=== PATIENT | male | born 1955 | race Caucasian/White ===

== ENCOUNTER 2016-05-06 12:37 | Inpatient (IN) | payer OTHER ==
[2016-05-06] MEDS ORDERED: ACETAMINOPHEN 325 MG TABLET PO PRN (13:30)
[2016-05-06] MEDS ORDERED: BISACODYL 10 MG SUP PR PRN (13:30)
[2016-05-06] MEDS ORDERED: BISACODYL 5 MG TABLET.EC PO PRN (13:30)
[2016-05-06] MEDS ORDERED: MAGNESIUM HYDROXIDE 30 ML UDCUP PO PRN (13:30)
[2016-05-06] MEDS ORDERED: BLISTEX LIPSTICK 1 EACH TP PRN (13:30)
[2016-05-06] MEDS ORDERED: MENTHOL/CETYLPYRD 1 EACH LOZENGE PO PRN (13:30)
[2016-05-06] MEDS ORDERED: SODIUM CHLORIDE 0.9% 100 ML IV PRN (13:30)
[2016-05-06] MEDS ORDERED: INSULIN ASPART (DOSE) 100 UNITS/1 ML SUB-Q PRN (13:32)
[2016-05-06] MEDS ORDERED: OXYCODONE HCL 5 MG TABLET PO PRN (13:32)
[2016-05-06 15:10] LABS: ABSOLUTE NEUTROPHIL COUNT 5.6 K/mm3 (1.8-7.7); BASO # 0.1 K/mm3 (0.0-0.2); BASO % 0.7 % (0.2-1.0); EOS # 0.5 (0.0-0.5); EOS % 5.9 % (0.9-2.9); HEMATOCRIT 46.9 % (32.0-52.0); HEMOGLOBIN 15.9 gm/l (14.0-18.0); IMM NEUT% 0.1 % (0-1); LYMPH # 1.8 (1.0-4.8); MEAN CELL VOLUME 92.1 fl (80.0-94.0); MEAN CORPUSCULAR HEMOGLOBIN 31.2 pg (27.0-31.0); MEAN CORPUSCULAR HGB CONC 33.9 g/dl (33.0-37.0); MEAN PLATELET VOLUME 9.4 fl (7.4-10.4); MONO # 0.6 (0.0-0.8); MONO % 6.5 % (4-12); NEUT % 65.8 % (43-75); PLATELET COUNT 220 K/mm3 (130-400); RED CELL DISTRIBUTION WIDTH 11.8 % (11.5-14.5)
[2016-05-06 15:30] LABS: ALB/GLOB RATIO 1.5 (>1.0); ALBUMIN 4.3 gm/dL (3.5-5.7); CALCIUM 9.8 mg/dL (8.6-10.3)
[2016-05-06 15:49] VITALS: BMI 29.1
[2016-05-06] MEDS ORDERED: PUMP TUBING ONE (16:22)
[2016-05-06] MEDS ORDERED: IV START KIT ONE (16:22)
[2016-05-06] MEDS ORDERED: INSULIN ASPART (DOSE) 100 UNITS/1 ML SUB-Q SCH ×2 (17:00)
[2016-05-06] MEDS ORDERED: INSULIN LISPRO SUB-Q SCH (17:00)
[2016-05-06] MEDS: VANCOMYCIN HCL 2 G in SODIUM CHLORIDE 0.9% 500 ML IV SCH (17:14)
[2016-05-06] MEDS: INSULIN ASPART (DOSE) 100 UNITS/1 ML SUB-Q SCH (17:22)
[2016-05-06] MEDS ORDERED: FLU VACC 2016-17 (36MO-64Y)/PF 60 MCG/0.5 ML SYRINGE IM V ONE (17:38)
--- NOTE | 2016-05-06 18:01 | HP ---
NURIA LEON [id number] DATE OF ADMISSION: May 06, 2016 CHIEF COMPLAINT: Left third digit redness, pain and swelling not responsive to antibiotics. HISTORY OF PRESENT ILLNESS: The patient is a 60-year-old male who has had a five or six day history of pain, redness and swelling involving the distal left third digit. He was seen at the [facility] on May 04, 2016, diagnosed with paronychia. He had the area drained and cultured and was prescribed Bactrim and clindamycin but despite the antibiotic therapy, he has not had improvement and has had progression of the redness involving his distal finger. I was contacted by [facility] requesting a direct admission of the patient. REVIEW OF SYSTEMS: Is negative for any signs of systemic illness. He denies any fever, chills, weakness or fatigue. He has had no upper respiratory symptoms, no cough, dyspnea, wheezing, chest pain, shortness of breath, or palpitations. No nausea, vomiting, diarrhea, constipation, or abdominal pain. No new arthralgias, no headaches, fainting, blackouts or seizures. No urinary complaints. He does have some chronic neuropathic discomfort but this has been stable. PAST MEDICAL HISTORY: Is significant for: 1. Adult onset diabetes treated with insulin. He actually states that he has insulin dependent diabetes just late onset. He was diagnosed about 21 years ago. He initially was tried on oral medications but he failed and was put on insulin with good results. He has had some microvascular disease complicating his diabetes but no other complications except for some mild neuropathy and denies retinopathy or nephropathy. 2. He has had a history of bipolar 2 disease, stable on medications. 3. Denies history of hypertension or coronary artery disease. 4. He denies any other chronic medical problems. 5. He reports a hospitalization a little over a year ago in March with cellulitis in the right foot. 6. He has had problems with infections in his feet but no lung or cardiac disease. PAST SURGICAL HISTORY: Significant for: 1. Tonsillectomy as a child. 2. 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 3. He also has had amputations of his distal phalanx of both his left and right feet which was done prior to that due to ulcerations that became infected and would not heal. 4. He denies any other surgical history. ALLERGIES: NO KNOWN DRUG ALLERGIES BUT WANTS TO PUT PENICILLIN DOWN AN ALLERGY DUE TO A FAMILY HISTORY OF ANAPHYLAXIS. CURRENT MEDICATIONS: 1. Lamictal 100 mg tablets. He takes 250 mg once daily. When I pointed out the bottle says twice daily, he states he has always taken it once a day and will review the dosage with his primary care provider in the future. 2. He also takes Seroquel 50 mg at bedtime as needed for sleep. 3. Latanoprost 0.005% eyedrops one drop in each eye at bedtime. 4. Humalog lispro insulin 10 to 15 unit before each meal and adjust the dose depending on his blood sugar and his dietary intake. He does not use a bedtime dose of insulin. FAMILY HISTORY: Negative for diabetes or heart disease. SOCIAL HISTORY: He has been single all his life. Has no children and is disabled from his diabetes. He lives alone but has a supportive family. PHYSICAL EXAMINATION: VITAL SIGNS: No vital signs have been recorded at this time. His body mass index is 29 and his weight is 111 kilograms. GENERAL: This is a well-developed, well-nourished male in no acute distress. HEENT: Exam is unremarkable. CHEST: Lungs are clear to auscultation bilaterally. CARDIOVASCULAR: Exam reveals a regular rate and rhythm without a murmur. ABDOMEN: Is soft, nontender, nondistended with positive bowel sounds. EXTREMITIES: Show no peripheral edema. Pulses are 2+ at the dorsalis pedis arteries bilaterally. He has a small callus under the right first toe with a very small amount of eschar present about 1 cm in size. No drainage, bleeding or redness. His left third distal phalanx is inflamed with some area of fluctuance involving the lateral nail bed. The redness does not extend beyond the distal interphalangeal joint. It does not appear to involve the joint. LABORATORY STUDIES: CBC shows a white count of 8.5, hemoglobin of 15.9, platelet count of 220,000. Chemistry profile shows sodium 136, potassium 4.1, carbon dioxide 24, BUN 16, creatinine 0.9. Liver function tests are normal. Glucose was 88. DIAGNOSTIC IMAGING: Patient had plain films done of the hand earlier today, mainly the finger, but there was no bony abnormality identified. ASSESSMENT: Patient has paronychia with some secondary cellulitis with adult onset diabetes on insulin and glaucoma. Because he has failed antibiotic treatment with clindamycin and Bactrim and has already had the area incised and drained with persistent inflammation, he is going to be placed under observation, treated with vancomycin overnight. I am going to ask Dr. Bartolome Clark to evaluate the patient in the morning if see if further surgical drainage at the bedside would be beneficial. I am hoping his final culture results will be back tomorrow. If not, he will stay on vancomycin pending identification and sensitivity of his culture. If MRSA is confirmed, he may benefit from a PICC catheter and outpatient IV antibiotics therapy. Further treatment and recommendations will depend on his hospital course. Venous thromboembolism risk is low but he will be placed on mechanical measures anyway. Cc: Randal Marcum M.D. [facility] (Formerly [facility])
[2016-05-06] MEDS ORDERED: LATANOPROST 0.005% 50 GTTS/2.5 ML BOT SOLN.DROP OU SCH (21:00)
[2016-05-06] MEDS: DOCUSATE SODIUM 100 MG CAPSULE PO SCH (21:02)
[2016-05-06] MEDS ORDERED: QUETIAPINE FUMARATE 50 MG TABLET PO PRN (21:11)
[2016-05-07] MEDS: VANCOMYCIN HCL 2 G in SODIUM CHLORIDE 0.9% 500 ML IV SCH (04:26)
[2016-05-07 06:29] LABS: ABSOLUTE NEUTROPHIL COUNT 2.5 K/mm3 (1.8-7.7); BASO # 0.1 K/mm3 (0.0-0.2); BASO % 0.8 % (0.2-1.0); EOS # 0.7 (0.0-0.5); HEMATOCRIT 43.1 % (32.0-52.0); HEMOGLOBIN 14.1 gm/l (14.0-18.0); IMM NEUT% 0.2 % (0-1); LYMPH # 2.2 (1.0-4.8); LYMPH % 36.6 % (15-45); MEAN CELL VOLUME 93.3 fl (80.0-94.0); MEAN CORPUSCULAR HEMOGLOBIN 30.5 pg (27.0-31.0); MEAN CORPUSCULAR HGB CONC 32.7 g/dl (33.0-37.0); MEAN PLATELET VOLUME 9.9 fl (7.4-10.4); MONO # 0.5 (0.0-0.8); MONO % 8.9 % (4-12); NEUT % 41.5 % (43-75); PLATELET COUNT 192 K/mm3 (130-400); RED CELL DISTRIBUTION WIDTH 11.9 % (11.5-14.5)
[2016-05-07 06:55] LABS: CALCIUM 8.6 mg/dL (8.6-10.3)
[2016-05-07] MEDS ORDERED: INSULIN GLARGINE (DOSE) 100 UNITS/ML UNIT SUB-Q SCH (09:00)
--- NOTE | 2016-05-07 09:54 | CONS ---
GURVINDER LEON : 1955 [id number] DATE ADMISSION: May 06, 2016 REASON FOR CONSULTATION: Left long finger paronychia. HISTORY OF PRESENT ILLNESS: A 60-year-old male who has had a several week history of increasing erythema and pain over the distal portion of his left long finer adjacent to the nail. He saw his primary care doctor at [facility] on May 04, 2016 and clinic incision and drainage was performed. He has continued to have increasing pain and tenderness despite antibiotics and presented to the hospital with these complaints. Given concern for continued cellulitis, he was admitted by the hospitalist service and orthopedics was consulted. Today he complains of ongoing pain although he thinks it is a bit better than it was yesterday. He has not noticed any continuing drainage from this site. He has no other extremity complaints. PAST MEDICAL HISTORY: As documented in the hospitalist's intake History and Physical. PAST SURGICAL HISTORY: As documented in the hospitalist's intake History and Physical. REVIEW OF SYSTEMS: Negative for constitutional, cardiovascular, or respiratory complaints. He has no specific systemic illness. PHYSICAL EXAMINATION: GENERAL: This is a well-developed, well-nourished male in no acute distress. Awake, alert and conversant throughout the encounter. EXTREMITIES: Focused musculoskeletal exam of his extremities shows 2+ pulses bilateral upper and lower extremities. He has significant erythema and swelling with some areas of fluctuance and a bit of serous type drainage. On his left long finger adjacent to the nail on the radial side of the nail there is an area that appears to potentially have some purulence to it. He has tenderness to palpation at this level and some limited motion. There does not appear to be either blood or purulence or drainage underneath the nail but rather adjacent to it. DIAGNOSTIC IMAGING: X-rays are within normal limits with just some soft tissue swelling. ASSESSMENT: Paronychia with cellulitis on the left long finger which has failed an initial incision and drainage and antibiotics. Plan will be for limited incision and drainage of the nail in the operating room under digital block with ongoing antibiotics tailored to his cultured. Risks, benefits, and alternatives were discussed with the patient. He elected to proceed. Informed consent was obtained and documented in the chart. We will proceed to the operating room today for incision and drainage.
[2016-05-07] MEDS ORDERED: MIDAZOLAM HCL 1 MG/ML 2ML VIAL ONE (11:22)
[2016-05-07] MEDS ORDERED: PROPOFOL 20 ML IV ONE ×3 (11:22→12:17)
[2016-05-07] MEDS ORDERED: LIDOCAINE 1% (PRES FREE) 30 ML VIAL ONE (11:28)
[2016-05-07] MEDS ORDERED: LACTATED RINGERS 1,000 ML ONE (11:47)
[2016-05-07] MEDS ORDERED: FENTANYL 100 MCG/2 ML VIAL ONE (12:00)
[2016-05-07] MEDS ORDERED: ATROPINE SULFATE 0.4 MG/1 ML VIAL IV PRN (12:16)
[2016-05-07] MEDS ORDERED: MEPERIDINE 25 MG/ML SYRINGE IV PRN (12:16)
[2016-05-07] MEDS ORDERED: PROMETHAZINE HCL 25 MG/ML VIAL IM PRN (12:16)
[2016-05-07] MEDS ORDERED: FENTANYL 100 MCG/2 ML VIAL IV PRN (12:16)
[2016-05-07] MEDS ORDERED: NALOXONE HCL 0.4 MG/ML VIAL IV PRN (12:16)
[2016-05-07] MEDS ORDERED: ONDANSETRON 4 MG/2ML 2 ML VIAL IV PRN (12:16)
[2016-05-07] MEDS ORDERED: HYDROMORPHONE HCL 1 MG/ML SYRINGE IV PRN (12:16)
--- NOTE | 2016-05-07 12:25 | PCMBPN ---
Brief Post Op Note: Date of Procedure: 05/07/16 Start Time: 1200 Preoperative Diagnosis: 1. left long finger perionychium Postoperative Diagnosis: 1. Same Procedure: left long finger I&D Surgeon: Bartolome Clark MD Assist: none Anesthesia: Yadira Valentino Findings: as above Condition: stable to PACU Complications: none IV Fluids: 200 mLs of LR Urine Output: 0 mLs Estimated Blood Loss: 2 mLs Tourniquet Time: none Specimens: none Implants: none Drains: none Bartolome Clark MD
[2016-05-07] MEDS ORDERED: LACTATED RINGERS 1,000 ML IV SCH (12:30)
[2016-05-07] MEDS: DOCUSATE SODIUM 100 MG CAPSULE PO SCH (13:27)
[2016-05-07] MEDS: INSULIN ASPART (DOSE) 100 UNITS/1 ML SUB-Q SCH ×2 (13:41→14:07)
--- NOTE | 2016-05-07 15:29 | PDOC43 ---
- Subjective Chief Complaint: left third finger infection Doing well post-op, no pain in finger. - Objective Vital Signs Temperature 98.6 F 05/07/16 13:20 Pulse Rate 66 05/07/16 14:00 Respiratory Rate 16 05/07/16 13:20 Blood Pressure 125/71 05/07/16 14:00 O2 Saturation by Pulse Oximetry 100 05/07/16 14:00 Oxygen Delivery Method Room Air Oxygen Flow Rate 0 Intake and Output 05/06/16 05/07/16 05/08/16 06:59 06:59 06:59 Intake Total 4900 Output Total 4050 Balance 850 General: Alert, Oriented x3, Cooperative, No Acute Distress HEENT: Mucous membr. moist/pink Lungs: Clear to Auscultation Bilaterally Cardiovascular: Regular Rate and Rhythm, No Murmur Abdomen: Soft, Normal Bowel Sounds, No Tenderness, No Masses Wound: Dressing Clean/Dry/Intact (on left third finger) Neurological: Normal Speech Psych/Mental Status: Normal Mood Laboratory 05/07/16 05:30 05/07/16 05:30 05/07/16 05/07/16 05/07/16 12:35 11:50 08:49 RBC MCHC Estimated GFR POC Capillary Glucose 221 H 199 H 133 H Alkaline Phosphatase 05/07/16 05/06/16 05/06/16 05:30 16:32 14:55 RBC 4.62 L MCHC 32.7 L Estimated GFR 86 H 86 H POC Capillary Glucose 57 L Alkaline Phosphatase 110 H Current Medications: Current meds reviewed in EMR. - Problems: Assessment/Plan (1) Cellulitis Qualifiers: Site of cellulitis: extremity Site of cellulitis of extremity: finger Laterality: left Qualifier Code: (L03.012) Cellulitis of left finger Status: Acute Assessment/Plan: Present on admit with methacillin Sensitive Staph aureus. S/P I&D. Resume treatment with oral septra and clinda. (2) Bipolar affective disorder Qualifiers: Active/Remission status: in full remission Status: Chronic Assessment/Plan: Continue usual meds. (3) Diabetes type 2, uncontrolled Qualifiers: Diabetes mellitus complication status: with neurologic complications Diabetes mellitus complication detail: with polyneuropathy Diabetes mellitus assistant terminal manager insulin use: with assistant terminal manager use Qualifier Code: (E11.42) Type 2 diabetes mellitus with diabetic polyneuropathy Status: Chronic Assessment/Plan: With transient hypoglycemia and hyperglycemia related to infection. Resume usual insulin treatment. (4) Glaucoma Qualifiers: Glaucoma type: open-angle Open angle glaucoma type: primary Laterality: bilateral Status: Chronic Assessment/Plan: Continue usual eye drops. VTE Prophylaxis: Not indicated. Disposition: discharge home.
[2016-05-07 15:55] VITALS: BP 128/82
--- NOTE | 2016-05-09 11:19 | OP ---
Shimon MEDINA : 1955 [id number] DATE OF SERVICE: May 07, 2016 PREOPERATIVE DIAGNOSIS: Left a long finger paronychium. POSTOPERATIVE DIAGNOSIS: Left a long finger paronychium. PROCEDURE PERFORMED: IRRIGATION AND DEBRIDEMENT OF THE LEFT LONG FINGER. SURGEON: Bartolome Clark M.D. CUPOLA HOIST OPERATOR: None. ANESTHESIA: Ruby Valentino C.R.N.A. SPECIMENS: No material was sent to the laboratory. ESTIMATED BLOOD LOSS: 2 mL. FLUIDS REPLACED: 200 mL of crystalloid. TOURNIQUET TIME: None. IMPLANTS: None. DRAINS: None. INDICATIONS: This is a 60-year-old gentleman who presents with increasing erythema and pain over his left long finger at the site of a paronychium, an attempted drainage was performed at his primary care doctor's office a day prior to presentation. He was admitted to the hospital by the hospitalists and was on intravenous antibiotics and they were concerned that his I&D had been inadequate. Orthopedics was consulted and confirmed the above findings. The patient was informed that we recommended a repeat I&D in the operating room in order to allow for a complete drainage. Risks, benefits and alternatives were discussed and he elected to proceed. Informed consent was obtained and documented in the chart and the patient was taken to the operating room in an expedient fashion. DESCRIPTION OF PROCEDURE: The patient was identified and marked by the operating surgeon. He was taken to the operating room where he was placed in a supine position on the operating room table. He received perioperative antibiotics. A well padded pre-calibrated nonsterile tourniquet was placed on his right upper arm. He underwent general anesthesia. He was prepped and draped in the usual sterile fashion for surgery. An operative time out was performed and confirmed by all members of the operative team. A [place] elevator was used to elevate the tissue around the nail of the left long finger entering the abscess and obtaining drainage of purulent material. This was then irrigated with sterile saline and wicked open with a small piece of Xeroform. A sterile dressing of Xeroform, fluffs, and an HESHAM bandage was applied. A digital block was performed for postoperative analgesia using 0.5% Marcaine without epinephrine. The drapes were then removed. The patient was awakened from his anesthesia, extubated in the operating room and transferred to a stretcher and taken postoperatively to the postanesthesia care unit in stable condition. There were no observed intraoperative complications during this procedure. Job [id number] Cc: [facility]
== END 2016-05-07 15:35 | disposition home or self-care (01) | DRG 603 ==
LOC: MS 14:18
PROVIDERS: ADMIT Family Medicine; ATTEND Family Medicine
PROC: 0H9GXZZ Drainage of Left Hand Skin, External Approach (ICD-10-PCS; principal; 2016-05-07)
DX: L03.012 Cellulitis of left finger (principal); F31.81 Bipolar II disorder; B95.62 Methicillin resistant Staphylococcus aureus infection as the cause of diseases classified elsewhere; Z79.4 Long term (current) use of insulin; E11.42 Type 2 diabetes mellitus with diabetic polyneuropathy; H40.1120 Primary open-angle glaucoma, left eye, stage unspecified; H40.1114 Primary open-angle glaucoma, right eye, indeterminate stage

== ENCOUNTER 2016-07-11 14:54 | Emergency (ER) | payer OTHER ==
[2016-07-11] MEDS ORDERED: IBUPROFEN 600 MG TABLET ONE (15:44)
[2016-07-11] MEDS ORDERED: ACETAMINOPHEN 325 MG TABLET ONE (15:45)
--- NOTE | 2016-07-11 16:52 | RAD ---
CHEST - 2 VIEWS COMPARISON: None. HISTORY: The patient fell 2 days ago, with left posterior rib pain. FINDINGS: Views: Frontal and lateral chest Lungs: Decreased volume of the left lung with increased opacity in the left lung base, associated with elevation of the left hemidiaphragm. Transverse opaque band in the right lung base. Heart and vessels: Normal Trachea and bronchi: Normal Mediastinum and shelbi: Normal Costophrenic sulci: Normal Chest wall and bones: Nondisplaced fracture, lateral left ribs 8 and 9. Upper abdomen: Normal. IMPRESSION: Nondisplaced fractures of lateral left ribs 8 and 9 with associated left hemidiaphragm paralysis and atelectasis in both lung bases.
--- NOTE | 2016-07-11 16:53 | RAD ---
RIBS - LEFT UNILATERAL COMPARISON: Chest 2 views, 07/11/2016 HISTORY: Patient fell 2 days ago with left posterior chest pain. FINDINGS: Views: 3 spot views of the left ribs. Ribs: Nondisplaced fractures laterally at left ribs 8 and 9. Lungs: Increased opacity left lung base with elevation of the left hemidiaphragm. IMPRESSION: 1. Nondisplaced fractures of the left eighth and ninth ribs. 2. Elevated left hemidiaphragm with atelectasis in the left lung base.
== END 2016-07-11 17:16 | disposition home or self-care (01) ==
LOC: ED 14:54
DX: S22.42XA Multiple fractures of ribs, left side, initial encounter for closed fracture (principal); E10.9 Type 1 diabetes mellitus without complications; Z79.4 Long term (current) use of insulin; Y92.003 Bedroom of unspecified non-institutional (private) residence as the place of occurrence of the external cause; W19.XXXA Unspecified fall, initial encounter
CPT/HCPCS: 71020; 71100; 99283 ×2; A9270 ×2